=== PATIENT | female | born 1970 | race Caucasian/White ===

== ENCOUNTER 2020-08-23 08:14 | Day surgery (SDC) | payer OTHER, SELFPAY ==
[2020-08-15 15:33] VITALS: BMI 27.4
--- NOTE | 2020-08-22 08:59 | P.CONAN_ITS ---
Documented by User: Susy Navarrete 08/22/20 09:00 HPI - Anesthesia Eval Consult details Narrative: 50yo F for Upper Endoscopy and Colonoscopy [facility] Past Medical History Medical History Hepatitis History of intrauterine contraceptive device Surgical History Surgical History Hx of appendectomy Hx of cholecystectomy Social History Social History Smoking Status: Never smoker Use of substances other than those prescribed or required for medical reasons: No Advance Directives Information Provided: No Recently lost weight without trying: No Meds Allergies Allergy/AdvReac Type Severity Reaction Status Date / Time No Known Allergies Allergy Verified 08/15/20 15:36 Home Medications Medication Instructions Recorded Confirmed Type No Known Home Meds 08/15/20 08/15/20 History Exam Exam Date and Time: August 22, 2020 0859 Height,Weight and Vital Signs: Height 5 ft 4 in Weight 72.575 kg Assessment and Plan Assessment Anesthesia Assessment: Chart Reviewed Documented by User: Roxana Mcginnis 08/23/20 09:46 [facility] Past Medical History Medical History Hepatitis History of intrauterine contraceptive device Surgical History Surgical History Hx of appendectomy Hx of cholecystectomy Social History Social History Smoking Status: Never smoker Use of substances other than those prescribed or required for medical reasons: No Advance Directives Information Provided: No Recently lost weight without trying: No Meds Allergies Allergy/AdvReac Type Severity Reaction Status Date / Time No Known Allergies Allergy Verified 08/15/20 15:36 Home Medications Medication Instructions Recorded Confirmed Type No Known Home Meds 08/15/20 08/15/20 History Exam Airway Mallampati Class: II TM Dist: >3cm Neck ROM: Full Loose/Missing/Broken Teeth: No Heart: RRR Lungs: CTA Assessment and Plan Assessment Anesthesia Assessment: Anesthesia Plan Discussed and Chart Reviewed Final Anesthetic Review NPO: Yes ASA Class: II Final Preanesthetic Review: Meds/Allgs Chart Reviewed, Consent Obtained/Reviewed and Anes Risks/Benef Reviewed Patient Risk: Low Procedure Risk: Intermediate Anesthetic Plan Anesthetic Plan: MAC: Disposition: Standard PACU
[2020-08-23 08:52] VITALS: BP 127/80; PULSE 76; RESP 16; TEMP 36.3; O2SAT 98
[2020-08-23] MEDS: Lactated Ringers 1,000 ML 100 ML IVCONT (09:01)
--- NOTE | 2020-08-23 09:41 | MHC.SHP ---
Pre-Procedural Eval Section A The patient is an INPATIENT: No Changes since office visit: No Cold of Flu in the past 2 weeks, No New Medical Problems, No Changes in Medication and No Patient answered all questions The History & Physical has been completed within 30 days and I have reviewed it.: Yes Section B Chief Complaint: constipation,h pilorium Allergies: Allergies Allergy/AdvReac Type Severity Reaction Status Date / Time No Known Allergies Allergy Verified 08/15/20 15:36 Plan I have reviewed the history and physical and performed a pertinent physical examination on my patient. No changes have occurred unless specified.
[2020-08-23 10:25] VITALS: BP 97/61; PULSE 70; RESP 16; TEMP 36.1; O2SAT 99
--- NOTE | 2020-08-23 10:28 | PM.OP ---
Brief Operative Note Date of Service: 08/23/20 Pre-op diagnosis: h pylori infection, screening Post-op diagnosis: same (gastritis, colon polyp) Procedure: egd, colonoscopy Surgeon: Gato Ramsay Anesthesia: MAC Estimated blood loss (mL): 5 Pathology: other (antral egj biopsies, polyp at tv colon) Condition: stable Disposition: PACU
[2020-08-23 10:40] VITALS: BP 110/68; PULSE 75; RESP 18; TEMP 36.1; O2SAT 99
--- NOTE | 2020-08-23 10:51 | OP_ITS ---
SURGEON: Gato Ramsay MD INDICATIONS: 1. H pylori infection. 2. Colon cancer screening. PREOPERATIVE DIAGNOSIS: POSTOPERATIVE DIAGNOSIS: PROCEDURE PERFORMED: 1. Upper endoscopy with biopsy. 2. Colonoscopy to the terminal ileum with biopsy. ESTIMATED BLOOD LOSS: COMPLICATIONS: ANESTHESIA: Monitored anesthesia care. ASSISTANTS: SPECIMENS: DESCRIPTION OF PROCEDURE: History and physical performed. The risks and benefits of the procedure were explained to the patient. Informed consent was obtained. The patient was placed in a left lateral decubitus position. The Olympus video gastroscope was introduced into the esophagus, stomach, and duodenum. Examination was performed. The scope was removed. She was repositioned for colonoscopy. A digital rectal exam was performed and was found to be normal. The Olympus pediatric video colonoscope was introduced into the rectum and advanced to the cecum without difficulty. The cecum was identified by transillumination, palpation, and identification of ileocecal valve. Examination was performed. The scope was removed. She tolerated both procedures well, was returned to recovery area in stable condition. FINDINGS: UPPER ENDOSCOPY: Esophagus: The esophagus was normal. The EG junction showed no esophagitis. Biopsies were obtained from the EG junction. Stomach: Stomach showed patchy erythema throughout consistent with gastritis and 1 single tiny erosion. Biopsies were obtained from the antrum. Duodenum: The bulb and second portion were normal. COLONOSCOPY: The terminal ileum was not examined. There was a large amount of stool coating the mucosa in the right colon and proximal transverse colon as well as the cecum. This limited the sensitivity examination for detection of small polyps. A single polyp measuring less than 5 mm was removed with biopsy forceps in the mid transverse colon. No other polyps were identified. Retroflexed examination showed internal hemorrhoids. IMPRESSION: 1. Gastritis. 2. Colon polyp. RECOMMENDATION: 1. Follow up the biopsy results. 2. Repeat colonoscopy should be considered in 6 to 12 months because of the poor prep. MD DIONE Lynn/PREETHIL / [id number]
--- NOTE | 2020-08-23 11:06 | HO.POSTANES ---
Post Anesthesia Evaluation Post Anesthesia Evaluation Vital Signs: Vital Signs Temp Pulse Resp BP Pulse Ox 08/23/20 10:40 97.0 F 75 18 110/68 99 08/23/20 10:25 97.0 F 70 16 97/61 99 08/23/20 08:52 97.4 F 76 16 127/80 98 Anesthesia: Monitored Mental Status: Awake Pain Control: Satisfactory Nausea/Vomiting: None Hydration: Adequate Anesthesia-Related Issues: No Anes. Related Issues
== END 2020-08-23 11:10 | disposition home or self-care (01) ==
PROVIDERS: PCP Internal Medicine; Visit Provider Internal Medicine Gastroenterology
PROC: (CPT 45380; principal; 2020-08-23 09:40)
DX: Z12.11 Encounter for screening for malignant neoplasm of colon (principal); D12.3 Benign neoplasm of transverse colon; K59.04 Chronic idiopathic constipation; K29.60 Other gastritis without bleeding; Z86.19 Personal history of other infectious and parasitic diseases; Z90.49 Acquired absence of other specified parts of digestive tract; K20.90 Esophagitis, unspecified without bleeding
CPT/HCPCS: 45380; 43239; 88305; 88342